=== PATIENT | male | born 1955 | race Caucasian/White ===

== ENCOUNTER 2016-08-11 11:21 | Inpatient (IN) | payer OTHER ==
--- NOTE | ~2016-08-11 | HP ---
History And Physical [address] [place]. [address] NAME: KONSTANTIN CELESTIN : 51 STATUS : ADM IN PAT#: [id number] AGE: 61 ADM/REG DATE : 08/11/16 MR#: [id number] REPORT SERV DATE: 08/11/16 DICTATED BY: LYDIA BARRERA DATE: 08/11/16 REPORT STATUS : Draft TRANSCRIBED BY: MODL DATE: 08/11/16 DATE OF ADMISSION: 08/11/2016 CHIEF COMPLAINT: Chest pain started around 4 to 5 o'clock afternoon and stayed all night, and also he has significant right foot pain that has been going on 3 to 4 months, and was supposed to see Dr. Carroll. He decided to come to the hospital due to the chest pain. HISTORY OF PRESENT ILLNESS: This is a 61-year-old male patient, who had a recent CABG in 03/2014 and 2015 in [facility] with Dr. Barrios. Started having chest pain yesterday at the midsternal area. He is concerned about his chest pain, that is why he decided to come to the hospital today. Meanwhile, he was recovering from the CABG at home pretty well. He was able to walk around without any walking aids. However, he started to suffer from right foot pain. [facility] and [facility] rider and then, ended up getting a referral to Dr. Carroll today for the first evaluation. However, he was not able to go there with this chest pain and decided to come to the hospital. The chest pain is midsternal area, is tender to touch. He did not have any nausea. He still had a pain overnight. His right foot was hurting all the time even at rest and especially at nighttime, it wakes him up from the sleep. He has not taken any medication, but his primary care increased his gabapentin to 400 mg three times a day, but he has not started at 400 mg three times a day, but he used to take it 300 mg three times a day without significant relief. He was told it was a problem for the circulation that is why he ended to see Dr. Carroll. Denies any fever or known weight loss. No nausea or vomiting. No constipation. No diarrhea, but he has a significant hearing loss since the CABG. REVIEW OF SYSTEMS: He did not have any seizures. He did not have any coughing or short of breath, and no abdominal habit change. Fourteen systems were reviewed and are negative. PAST MEDICAL HISTORY: 1. CABG, back in 03/2006. 2. 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 3. Seizure, postoperatively. 4. Peripheral vascular disease. 5. Hypertension. 6. Hyperlipidemia. 7. Diet-controlled diabetes. PAST SURGICAL HISTORY: 1. Had a left hip total replacement. History And Physical [address] [address] NAME: KONSTANTIN CELESTIN : 51 STATUS : ADM IN [facility]#: [id number] AGE: 61 ADM/REG DATE : 08/11/16 MR#: [id number] REPORT SERV DATE: 08/11/16 DICTATED BY: LYDIA BARRERA DATE: 08/11/16 REPORT STATUS : Draft TRANSCRIBED BY: KIT DATE: 08/11/16 2. Coronary artery surgery x2. 3. Esophageal stricture, stretch done. SOCIAL HISTORY: 1. Quit smoking after the CABG, but he used to smoke one and half a pack a day for whole life, which is 50 years. 2. Denies any alcohol. Used to work at [employer] He lives with his . He does not require any oxygen or walking aids. MEDICATIONS: At home: Norvasc 10 mg once a day, aspirin 81 mg once a day, Lipitor 40 mg once at nighttime, docusate twice a day, Neurontin 300 mg three times a day, Keppra 500 mg twice a day, Claritin 10 mg once daily as needed, Lopressor 50 mg twice a day, Remeron 200 mg once at nighttime. ALLERGIES: NO KNOWN DRUG ALLERGIES. PHYSICAL EXAMINATION: VITAL SIGNS: Blood pressure 115/72, pulse is 75, temperature is 98.1, saturation is 98% on room air. GENERAL APPEARANCE: He is alert, awake, older looking than his age, but he is also deaf. HEENT: Pupils are equal, round, and reactive to light. NECK: There is no jugular venous distention. No nodes palpable. CHEST: Clear to auscultation bilaterally. Has normal respiratory effort. CARDIOVASCULAR: No murmur, rub, or gallop, and regular rhythm and rate. ABDOMEN: Bowel sounds are present. Soft. There is no organomegaly appreciated. EXTREMITIES: The patient's right foot is warm to touch and it is very tender to touch, especially the 1st meta pharyngeal area. Circulation is very faint on both feet, but both feet are warm and the right side is warmer than the left side. LABORATORY DATA: Showed a sodium 144, potassium 4.0, BUN 13, creatinine 0.94. WBC 10.6, hemoglobin 13.5 and hematocrit 39.4, platelets 258. Troponin of 1.61. Chest x-ray showed no acute pathology. Electrocardiogram showed normal sinus rhythm without significant ST changes and also second electrocardiogram was obtained, when he was having chest pain and it did not show any changes. ASSESSMENT/PLAN: 1. Chest pain. It might be more musculoskeletal, because it was tender to touch in all through the incision site. However, he has elevated troponin. Currently, the patient was seen by Dr. Joseph prior to me and was put on a heparin drip for cardiovascular protocol. We are going to obtain the echocardiogram. 2. Right foot pain. More likely combination from the peripheral vascular disease and also inflammatory process is more appreciated. Need to check any possibility of gout. We History And Physical [address] [address] NAME: KONSTANTIN CELESTIN : 51 STATUS : ADM IN [facility]#: [id number] AGE: 61 ADM/REG DATE : 08/11/16 MR#: [id number] REPORT SERV DATE: 08/11/16 DICTATED BY: LYDIA BARRERA DATE: 08/11/16 REPORT STATUS : Draft TRANSCRIBED BY: MODL DATE: 08/11/16 are going to check the uric acid level and also obtain an x-ray for the foot and a Doppler scan for the artery. 3. History of a recent CABG. 4. Due to this sternal pain and tenderness with a recent CABG, we are going to obtain a CT of his chest to see any evidence of anything on the sternum area. 5. History of cerebrovascular accident. 6. History of seizure disorder. 7. Severe hearing loss. 8. History was obtained through writing down on the pad with the patient's family's help due to his hearing loss. I explained to them about the current plan and they all voiced understanding. EKL/MODL Lydia Barrera M.D. / [id number] CC: Lydia Barrera M.D.
--- NOTE | ~2016-08-11 | DS ---
Discharge Summary [facility] [address] [facility] [place]. [address] NAME: KONSTANTIN CELESTIN : 51 STATUS : DIS IN PAT#: [id number] AGE: 61 ADM/REG DATE : 08/11/16 MR#: [id number] REPORT SERV DATE: 08/16/16 DICTATED BY: VELIA BARRERA DATE: 08/15/16 REPORT STATUS : Draft TRANSCRIBED BY: MODL DATE: 08/15/16 ADMISSION DATE: 08/11/2016 DISCHARGE DATE: 08/15/2016 DISCHARGE DIAGNOSES: 1. Bpz-NS-mhnretums myocardial infarction, status post stent on [place] left anterior descending due to the occluded graft, and repeated cardiac cath after troponin went up, after the cardiac cath did show patent stent. 2. Right peripheral vascular disease. 3. Right foot pain from the peripheral vascular disease plus clinically was suspect to have inflammatory process, although his uric acid level was low, treated with a dose of anti-inflammatory steroid and NSAID topical, improved. The patient will be followed by Dr. Carroll. 4. History of cerebrovascular accident, stable. 5. Deafness. 6. History of tobacco abuse and clinical chronic obstructive pulmonary disease. HISTORY OF PRESENT ILLNESS: This is a 61-year-old male patient, who had a recent CABG at [facility] in March 2016, brought to the emergency room when he complained about chest pain at home. Please see dictated H and P. HOSPITAL COURSE: He was admitted to the hospital with chest pain. At that time, his troponin was elevated at 1.92, and he had a cardiac catheterization. The cardiac catheterization revealed occluded graft, and so nursing informatics clinical analyst felt stent in [place] LAD is beneficial, so they did a drug-eluting stent in LAD. He was put on dual anti-platelet therapy for in longer time. Indefinitely. He stayed a short stay and then the next morning he developed another chest pain and troponin went up to 5, therefore he was taken to the carpenter labor supervisor, again had another angiography. It did not show any changes, it showed patent LAD stent. After that, he was transferred to the telemetry bed. Meanwhile, he was evaluated with Doppler for his claudication and it showed moderate disease on the right side. The patient already had an appointment with Dr. Carroll and Dr. Carroll said, we will follow up him as an outpatient and after cardiac issues stabilized. Meanwhile, he was treated with the NSAID topical and intermittent opioids. However, his foot was very hot when he came into the hospital to suspect inflammatory process. His x-ray did not show any significant changes or any concern for osteomyelitis. Therefore, he was treated with a dose of IV steroid and topical steroid. Actually, the topical steroid helped him a lot than opioid medication. We are going to continue to use the topical. His uric acid was found to be 6.5. He was not treated for hyperuricemia yet. We will continue the topical NSAID. The patient will be followed by Dr. Carroll as an outpatient for peripheral vascular disease. His medications have been adjusted for his heart or cardiac disease. His metoprolol was changed to Coreg. He was added lisinopril and Imdur was added. Overall, he tolerated all this treatment and he is ambulating with minimal assistance, and the patient will be Discharge Summary [address] [address] NAME: KONSTANTIN CELESTIN : 51 STATUS : DIS IN PAT#: [id number] AGE: 61 ADM/REG DATE : 08/11/16 MR#: [id number] REPORT SERV DATE: 08/16/16 DICTATED BY: VELIA BARRERA DATE: 08/15/16 REPORT STATUS : Draft TRANSCRIBED BY: KIT DATE: 08/15/16 discharged. Discharge plan was discussed with the and the patient, since the patient is deaf and also is communicating with him writing down. DISCHARGE MEDICATIONS: 1. Aspirin 81 mg once a day. 2. Lipitor 40 mg once at nighttime. 3. Lopressor was discontinued. 4. Coreg 3.125 mg twice a day. 5. Neurontin 300 mg three times a day. 6. Keppra 500 mg twice a day. 7. Remeron 30 mg once at nighttime. 8. Lisinopril 2.5 mg once a day. 9. Imdur 60 mg once a day. 10.Brilinta 90 mg twice a day. 11.Norvasc was discontinued. 12.Hydrocodone 10 pills are given for discharge. DISPOSITION: The patient is discharged to home in stable condition. TIME SPENT: More than 30 minutes for the discharge coordination. EKL/MODL Velia Barrera M.D. / [id number] CC: Velia Barrera M.D.
--- NOTE | ~2016-08-11 | CN ---
Consultation Report [facility] [address] [place]. [address] NAME: KONSTANTIN CELESTIN : 51 STATUS : ADM Dilip PAT#: [id number] AGE: 61 ADM/REG DATE : 08/11/16 MR#: [id number] REPORT SERV DATE: 08/11/16 DICTATED BY: JAQUI SANCHES DATE: 08/11/16 REPORT STATUS : Draft TRANSCRIBED BY: MODSimin DATE: 08/11/16 CARDIOLOGY CONSULT NOTE DATE OF CONSULTATION: 08/11/2016 REFERRING REASON: Chest pain. HISTORY OF PRESENT ILLNESS: This is a 61-year-old white gentleman with a complex past medical history, who has been brought by his family for intermittent chest pain to emergency room. Communication has been difficult while the patient has congenital deafness. He has a very limited ability to speak to his , who is interpreting. Initially, there were no family members around. Later on, his was able to provide information that he reportedly has been closely followed at the [facility] and [facility] with prolonged hospitalization in five different hospitals until last month in the area including [facility], [facility], [facility], and the [facility]. The patient's stated that he underwent bypass grafting care at [facility] in March after suffering myocardial infarction. He also developed subsequently stroke and seizures and had a prolonged hospitalization at [facility]. Subsequently, he was for some rehabilitation at the [facility]. All information is per his . He was recently found to have osteomyelitis in the right foot. He saw some orthopaedic doctor and has a pending appointment with Dr. Carroll of Vascular Surgery. He continues to have intermittent episodes of chest pain. He had some episode of chest pain yesterday. He has been a heavy smoker until March for the entire life. He has limited ability to walk. Electrocardiogram has not revealed any acute ST-T changes. Troponin was found to be 1.6. The patient is now comfortably lying in bed. Obvious communication difficulties. No acute distress. No outside information available. List of medication is unknown to the . We were asked to see him in consult. PAST MEDICAL HISTORY: 1. Reportedly history of myocardial infarction in 03/2016 with subsequent CABG possibly by Dr. Barrios at [facility]. 2. Peripheral artery disease. 3. Possible right foot osteomyelitis. 4. History of CVA. 5. History of seizure disorder with a strong hospitalization at [facility] until last month. 6. Congenital deafness. 7. Hypertension. 8. History of smoking dependency. SOCIAL HISTORY: The patient is followed at the [facility]. He reportedly has a congenital deafness. He has been a heavy smoker until 03/2016. Denies drinking alcohol or using street drugs. He is now reported to have ambulating without any support. Consultation Report [facility] [address] [place]. [address] NAME: KONSTANTIN CELESTIN : 51 STATUS : ADM Dilip PAT#: [id number] AGE: 61 ADM/REG DATE : 08/11/16 MR#: [id number] REPORT SERV DATE: 08/11/16 DICTATED BY: JAQUI SANCHES DATE: 08/11/16 REPORT STATUS : Draft TRANSCRIBED BY: KIT DATE: 08/11/16 FAMILY HISTORY: Unknown. HOME MEDICATIONS: Unknown. PHYSICAL EXAMINATION: GENERAL: In no acute distress. The patient is comfortably lying in bed. VITAL SIGNS: Blood pressure 126/72, heart rate 68 and regular. HEENT: Pupils reactive to light and accommodation. Moist mucosa membrane. NECK: No JVD. Normal carotid upstroke. No carotid bruits. LUNGS: Clear to auscultation bilaterally. Normal inspiratory efforts. HEART: S1. No S3 or S4. Soft systolic murmur 2/6 at the apex. ABD: Soft, nontender, nondistended. EXTREMITIES: Lower extremities show decreased pedal pulses bilaterally with some gangrenous changes in the right heel. SKIN: Warm with normal turgor. MS: No kyphosis. NEURO/PSY: Alert and oriented. Nonfocal. DATA: CBC remarkable for hemoglobin 13.5, leukocytosis 11,000 with left shift. Electrolytes within normal limits. Troponin 1.6. Chest x-ray: No acute pathology. Electrocardiogram: Normal sinus rhythm, 70 beats per minute. Poor R-wave progression in the anterior leads, otherwise no acute ST-T changes. Possible left atrial enlargement. No previous electrocardiogram available. No findings in the chart. No hospitalization to [facility] previously. ASSESSMENT AND PLAN: 1. Intermittent chest pain of unclear etiology. 2. Elevated troponin, possible demand ischemia. 3. Possible right foot osteomyelitis. 4. Peripheral artery disease. 5. Reported history of CABG in 03/2016. I discussed with his ER provider that information will need to be obtained from the [facility] as well as the [facility]. He will need to be on monitor bed. He is to continue aspirin and heparin, which were started already in the emergency room. We will start him on carvedilol until the information about his home medication will be obtained. He may have just demand ischemia, not acute coronary syndrome, but obviously we will need to reassess if another coronary arteriogram will be necessary. The patient is currently pain- free and comfortably lying in the bed. We will follow the patient with the hospitalist. Consultation Report [facility] [id number] [place]. [address] NAME: KONSTANTIN CELESTIN : 51 STATUS : ADM Dilip PAT#: [id number] AGE: 61 ADM/REG DATE : 08/11/16 MR#: [id number] REPORT SERV DATE: 08/11/16 DICTATED BY: JAQUI SANCHES DATE: 08/11/16 REPORT STATUS : Draft TRANSCRIBED BY: KIT DATE: 08/11/16 DAVIDA/KIT Jaqui Sanches M.D. / [id number] CC: UNKNOWN
[2016-08-11 11:19] LABS: BASOPHILS 0.5 %; BASOPHILS ABSOLUTE 0.05 10/3/uL (0.0-0.16); EOSINOPHILS 2.7 %; EOSINOPHILS ABSOLUTE 0.29 10/3/uL (0.0-0.53); HEMATOCRIT 39.4 % (40.0-51.0); HEMOGLOBIN 13.5 g/dL (13.6-17.8); IMMATURE GRANULOCYTES 0.3 %; IMMATURE GRANULOCYTES ABSOLUTE 0.03 10/3/uL (0.0-0.11); LYMPHOCYTES 33.7 %; LYMPHOCYTES ABSOLUTE 3.56 10/3/uL (0.67-4.30); MEAN CORPUS HGB CONC 34.3 g/dL (32.0-36.0); MEAN CORPUSCULAR HEMOGLOB 31.3 pg (26.0-34.0); MEAN CORPUSCULAR VOLUME 91.2 fL (80-100); MEAN PLATELET VOLUME 9.9 fL (9.2-13.0); MONOCYTES 10.1 %; MONOCYTES ABSOLUTE 1.07 10/3/uL (0.21-1.20); NEUTROPHILS 52.7 %; NEUTROPHILS ABSOLUTE 5.56 10/3/uL (2.02-8.40); PLATELET COUNT 258 10/3/uL (150-400); RBC DISTRIBUTION WIDTH 14.6 % (12.0-16.0); RED CELL COUNT 4.32 10/6/uL (4.7-6.1); WHITE BLOOD CELLS 10.6 10/3/uL (4.5-10.5)
[2016-08-11 11:22] LABS: MANUAL DIFF NO %
[2016-08-11 11:29] LABS: PARTIAL THROMBO TIME 30.5 SEC (22.5-37.2)
[2016-08-11 11:34] LABS: BUN (BLOOD UREA NITROGEN) 13 MG/DL (6-23); CALCIUM, SERUM 9.3 MG/DL (8.5-10.4); CHLORIDE, SERUM 108 MMOL/L (96-112); CO2 (CARBON DIOXIDE) 25 MMOL/L (24-34); CREATININE 0.94 MG/DL (0.70-1.30); GFR AFRICAN AMERICAN 100 ML/MIN (>=60); GFR NON AFRICAN AMERICAN 86 ML/MIN (>=60); GLUCOSE, SERUM 81 MG/DL (60-99); SODIUM, SERUM 144 MMOL/L (135-148)
[2016-08-11 11:36] LABS: CHEST PAIN PROFILE TAT 0 Hrs 21 Mins; TROPONIN I 1.61 NG/ML (<0.05)
[2016-08-11] MEDS ORDERED: NORV10 PO (13:23)
[2016-08-11] MEDS ORDERED: HALF81 PO (13:24)
[2016-08-11] MEDS ORDERED: NEUR300 PO (13:24)
[2016-08-11] MEDS ORDERED: D.O.S.100 MG PO (13:24)
[2016-08-11] MEDS ORDERED: KEPPRA500 PO (13:25)
[2016-08-11] MEDS ORDERED: LOP50 PO (13:31)
[2016-08-11] MEDS ORDERED: LIPITOR40 PO (13:31)
[2016-08-11] MEDS ORDERED: REMERON30 MG PO (13:32)
[2016-08-11] MEDS ORDERED: CLARIT10 PO (13:33)
[2016-08-12 05:42] LABS: BASOPHILS 0.6 %; BASOPHILS ABSOLUTE 0.05 10/3/uL (0.0-0.16); EOSINOPHILS ABSOLUTE 0.49 10/3/uL (0.0-0.53); HEMATOCRIT 37.1 % (40.0-51.0); HEMOGLOBIN 12.4 g/dL (13.6-17.8); IMMATURE GRANULOCYTES 0.2 %; IMMATURE GRANULOCYTES ABSOLUTE 0.02 10/3/uL (0.0-0.11); LYMPHOCYTES 41.8 %; LYMPHOCYTES ABSOLUTE 3.43 10/3/uL (0.67-4.30); MANUAL DIFF NO %; MEAN CORPUS HGB CONC 33.4 g/dL (32.0-36.0); MEAN CORPUSCULAR HEMOGLOB 30.8 pg (26.0-34.0); MEAN CORPUSCULAR VOLUME 92.1 fL (80-100); MEAN PLATELET VOLUME 10.4 fL (9.2-13.0); MONOCYTES 12.1 %; MONOCYTES ABSOLUTE 0.99 10/3/uL (0.21-1.20); NEUTROPHILS 39.3 %; NEUTROPHILS ABSOLUTE 3.23 10/3/uL (2.02-8.40); PARTIAL THROMBO TIME 76.4 SEC (22.5-37.2); PLATELET COUNT 258 10/3/uL (150-400); RBC DISTRIBUTION WIDTH 14.5 % (12.0-16.0); RED CELL COUNT 4.03 10/6/uL (4.7-6.1); WHITE BLOOD CELLS 8.2 10/3/uL (4.5-10.5)
[2016-08-12 05:43] LABS: A/G RATIO 0.9 (0.7-1.9); ALBUMIN 3.1 G/DL (3.5-5.0); ALKALINE PHOSPHATASE 121 U/L (45-117); BUN (BLOOD UREA NITROGEN) 14 MG/DL (6-23); CALCIUM, SERUM 8.9 MG/DL (8.5-10.4); CHLORIDE, SERUM 108 MMOL/L (96-112); CO2 (CARBON DIOXIDE) 26 MMOL/L (24-34); CREATININE 0.97 MG/DL (0.70-1.30); GFR AFRICAN AMERICAN 96 ML/MIN (>=60); GFR NON AFRICAN AMERICAN 83 ML/MIN (>=60); GLOBULIN 3.3 G/DL (2.5-4.1); GLUCOSE, SERUM 94 MG/DL (60-99); POTASSIUM, SERUM 3.8 MMOL/L (3.5-5.3); SGOT(AST) 28 U/L (5-40); SGPT(ALT) 22 U/L (5-65); SODIUM, SERUM 145 MMOL/L (135-148); TOTAL BILIRUBIN 0.3 MG/DL (0-1.2); TOTAL PROTEIN 6.4 G/DL (6.0-8.5)
[2016-08-12 07:44] LABS: SED RATE 12 MM/HR (0-15)
[2016-08-12 11:49] LABS: CK-MB 23.8 NG/ML; CKMB INDEX (NOT ORD) 11.4
[2016-08-12 16:58] LABS: BASOPHILS 0.5 %; BASOPHILS ABSOLUTE 0.05 10/3/uL (0.0-0.16); EOSINOPHILS 3.5 %; EOSINOPHILS ABSOLUTE 0.34 10/3/uL (0.0-0.53); HEMATOCRIT 35.2 % (40.0-51.0); HEMOGLOBIN 12.1 g/dL (13.6-17.8); IMMATURE GRANULOCYTES 0.4 %; IMMATURE GRANULOCYTES ABSOLUTE 0.04 10/3/uL (0.0-0.11); LYMPHOCYTES 28.6 %; LYMPHOCYTES ABSOLUTE 2.81 10/3/uL (0.67-4.30); MEAN CORPUS HGB CONC 34.4 g/dL (32.0-36.0); MEAN CORPUSCULAR HEMOGLOB 30.9 pg (26.0-34.0); MONOCYTES 7.3 %; MONOCYTES ABSOLUTE 0.72 10/3/uL (0.21-1.20); NEUTROPHILS 59.7 %; NEUTROPHILS ABSOLUTE 5.88 10/3/uL (2.02-8.40); PLATELET COUNT 242 10/3/uL (150-400); RBC DISTRIBUTION WIDTH 14.6 % (12.0-16.0); RED CELL COUNT 3.91 10/6/uL (4.7-6.1); WHITE BLOOD CELLS 9.8 10/3/uL (4.5-10.5)
[2016-08-12 17:01] LABS: MANUAL DIFF NO %
[2016-08-12 21:20] LABS: BASOPHILS 0.4 %; BASOPHILS ABSOLUTE 0.04 10/3/uL (0.0-0.16); EOSINOPHILS 3.2 %; EOSINOPHILS ABSOLUTE 0.33 10/3/uL (0.0-0.53); HEMATOCRIT 34.6 % (40.0-51.0); HEMOGLOBIN 12.1 g/dL (13.6-17.8); IMMATURE GRANULOCYTES 0.4 %; IMMATURE GRANULOCYTES ABSOLUTE 0.04 10/3/uL (0.0-0.11); LYMPHOCYTES ABSOLUTE 2.65 10/3/uL (0.67-4.30); MANUAL DIFF NO %; MEAN CORPUSCULAR HEMOGLOB 31.3 pg (26.0-34.0); MEAN CORPUSCULAR VOLUME 89.4 fL (80-100); MEAN PLATELET VOLUME 10.1 fL (9.2-13.0); MONOCYTES 9.4 %; MONOCYTES ABSOLUTE 0.96 10/3/uL (0.21-1.20); NEUTROPHILS 60.6 %; NEUTROPHILS ABSOLUTE 6.19 10/3/uL (2.02-8.40); PLATELET COUNT 240 10/3/uL (150-400); RBC DISTRIBUTION WIDTH 14.6 % (12.0-16.0); RED CELL COUNT 3.87 10/6/uL (4.7-6.1); WHITE BLOOD CELLS 10.2 10/3/uL (4.5-10.5)
[2016-08-13 01:42] LABS: BASOPHILS 0.4 %; BASOPHILS ABSOLUTE 0.04 10/3/uL (0.0-0.16); EOSINOPHILS 3.6 %; HEMATOCRIT 35.7 % (40.0-51.0); HEMOGLOBIN 12.2 g/dL (13.6-17.8); IMMATURE GRANULOCYTES 0.3 %; IMMATURE GRANULOCYTES ABSOLUTE 0.03 10/3/uL (0.0-0.11); LYMPHOCYTES 27.5 %; LYMPHOCYTES ABSOLUTE 3.06 10/3/uL (0.67-4.30); MANUAL DIFF NO %; MEAN CORPUS HGB CONC 34.2 g/dL (32.0-36.0); MEAN CORPUSCULAR VOLUME 90.6 fL (80-100); MONOCYTES 9.8 %; MONOCYTES ABSOLUTE 1.09 10/3/uL (0.21-1.20); NEUTROPHILS 58.4 %; NEUTROPHILS ABSOLUTE 6.49 10/3/uL (2.02-8.40); PLATELET COUNT 253 10/3/uL (150-400); RBC DISTRIBUTION WIDTH 14.2 % (12.0-16.0); RED CELL COUNT 3.94 10/6/uL (4.7-6.1); WHITE BLOOD CELLS 11.1 10/3/uL (4.5-10.5)
[2016-08-13 01:58] LABS: BUN (BLOOD UREA NITROGEN) 12 MG/DL (6-23); CALCIUM, SERUM 8.7 MG/DL (8.5-10.4); CHLORIDE, SERUM 107 MMOL/L (96-112); CO2 (CARBON DIOXIDE) 26 MMOL/L (24-34); CREATININE 1.14 MG/DL (0.70-1.30); GFR AFRICAN AMERICAN 79 ML/MIN (>=60); GFR NON AFRICAN AMERICAN 68 ML/MIN (>=60); GLUCOSE, SERUM 108 MG/DL (60-99); POTASSIUM, SERUM 3.8 MMOL/L (3.5-5.3); SODIUM, SERUM 144 MMOL/L (135-148)
[2016-08-13 02:00] LABS: CKMB INDEX (NOT ORD) 7.6; CPK 172 U/L (0-200)
[2016-08-13 02:02] LABS: TROPONIN I 4.07 NG/ML (<0.05)
[2016-08-14 06:21] LABS: BASOPHILS 0.3 %; BASOPHILS ABSOLUTE 0.03 10/3/uL (0.0-0.16); EOSINOPHILS 3.7 %; EOSINOPHILS ABSOLUTE 0.34 10/3/uL (0.0-0.53); HEMATOCRIT 32.7 % (40.0-51.0); HEMOGLOBIN 11.3 g/dL (13.6-17.8); IMMATURE GRANULOCYTES 0.2 %; IMMATURE GRANULOCYTES ABSOLUTE 0.02 10/3/uL (0.0-0.11); LYMPHOCYTES 31.9 %; LYMPHOCYTES ABSOLUTE 2.97 10/3/uL (0.67-4.30); MANUAL DIFF NO %; MEAN CORPUS HGB CONC 34.6 g/dL (32.0-36.0); MEAN CORPUSCULAR HEMOGLOB 31.5 pg (26.0-34.0); MEAN CORPUSCULAR VOLUME 91.1 fL (80-100); MEAN PLATELET VOLUME 10.2 fL (9.2-13.0); MONOCYTES 10.1 %; MONOCYTES ABSOLUTE 0.94 10/3/uL (0.21-1.20); NEUTROPHILS 53.8 %; PLATELET COUNT 236 10/3/uL (150-400); RBC DISTRIBUTION WIDTH 14.6 % (12.0-16.0); RED CELL COUNT 3.59 10/6/uL (4.7-6.1); WHITE BLOOD CELLS 9.3 10/3/uL (4.5-10.5)
[2016-08-14 06:31] LABS: BUN (BLOOD UREA NITROGEN) 12 MG/DL (6-23); CALCIUM, SERUM 8.6 MG/DL (8.5-10.4); CHLORIDE, SERUM 111 MMOL/L (96-112); CO2 (CARBON DIOXIDE) 27 MMOL/L (24-34); CREATININE 1.02 MG/DL (0.70-1.30); GFR AFRICAN AMERICAN 90 ML/MIN (>=60); GFR NON AFRICAN AMERICAN 78 ML/MIN (>=60); GLUCOSE, SERUM 105 MG/DL (60-99); POTASSIUM, SERUM 3.7 MMOL/L (3.5-5.3); SODIUM, SERUM 145 MMOL/L (135-148)
[2016-08-15 05:56] LABS: BASOPHILS 0.2 %; BASOPHILS ABSOLUTE 0.02 10/3/uL (0.0-0.16); EOSINOPHILS 0.1 %; EOSINOPHILS ABSOLUTE 0.01 10/3/uL (0.0-0.53); HEMATOCRIT 30.3 % (40.0-51.0); HEMOGLOBIN 10.5 g/dL (13.6-17.8); IMMATURE GRANULOCYTES 0.5 %; IMMATURE GRANULOCYTES ABSOLUTE 0.07 10/3/uL (0.0-0.11); LYMPHOCYTES 14.9 %; LYMPHOCYTES ABSOLUTE 1.98 10/3/uL (0.67-4.30); MANUAL DIFF NO %; MEAN CORPUS HGB CONC 34.7 g/dL (32.0-36.0); MEAN CORPUSCULAR HEMOGLOB 31.1 pg (26.0-34.0); MEAN CORPUSCULAR VOLUME 89.6 fL (80-100); MEAN PLATELET VOLUME 9.8 fL (9.2-13.0); MONOCYTES 8.5 %; MONOCYTES ABSOLUTE 1.13 10/3/uL (0.21-1.20); NEUTROPHILS 75.8 %; NEUTROPHILS ABSOLUTE 10.06 10/3/uL (2.02-8.40); PLATELET COUNT 258 10/3/uL (150-400); RBC DISTRIBUTION WIDTH 14.4 % (12.0-16.0); RED CELL COUNT 3.38 10/6/uL (4.7-6.1); WHITE BLOOD CELLS 13.3 10/3/uL (4.5-10.5)
[2016-08-15 06:10] LABS: CALCIUM, SERUM 8.9 MG/DL (8.5-10.4); CHLORIDE, SERUM 110 MMOL/L (96-112); CO2 (CARBON DIOXIDE) 23 MMOL/L (24-34); CREATININE 0.92 MG/DL (0.70-1.30); GFR AFRICAN AMERICAN 102 ML/MIN (>=60); GFR NON AFRICAN AMERICAN 88 ML/MIN (>=60); POTASSIUM, SERUM 3.9 MMOL/L (3.5-5.3); SODIUM, SERUM 143 MMOL/L (135-148)
[2016-08-15 06:12] LABS: BUN (BLOOD UREA NITROGEN) 16 MG/DL (6-23); GLUCOSE, SERUM 132 MG/DL (60-99)
[2016-08-15] MEDS ORDERED: VOLTAREN1 % TOP (12:16)
[2016-08-15] MEDS ORDERED: NORCO1 TA1 PO (12:17)
[2016-08-15] MEDS ORDERED: BRILINTA90 MG PO (12:17)
[2016-08-15] MEDS ORDERED: COREG3 PO (12:18)
[2016-08-15] MEDS ORDERED: IMDUR60 PO (12:18)
[2016-08-15] MEDS ORDERED: PRIN2.5 PO (12:18)
[2016-08-15] MEDS ORDERED: MIRALAX POWDER1 PKT PO (12:20)
== END 2016-08-15 14:36 | disposition home or self-care (01) | DRG 247 ==
LOC: ER 11:21 → CDU1 14:04 → 7NO 14:54 → SSU1 08-12 10:54 → 5NO 08-13 14:22
PROVIDERS: Internal Medicine; Internal Medicine Cardiovascular Disease; Physician Assistant
PROC: 4A023N7 Measurement of Cardiac Sampling and Pressure, Left Heart, Percutaneous Approach (ICD-10-PCS; principal; 2016-08-12)
PROC: 027034Z Dilation of Coronary Artery, One Artery with Drug-eluting Intraluminal Device, Percutaneous Approach (ICD-10-PCS; 2016-08-12)
PROC: B2111ZZ Fluoroscopy of Multiple Coronary Arteries using Low Osmolar Contrast (ICD-10-PCS; 2016-08-12)
PROC: B2151ZZ Fluoroscopy of Left Heart using Low Osmolar Contrast (ICD-10-PCS; 2016-08-12)
PROC: 3E073PZ Introduction of Platelet Inhibitor into Coronary Artery, Percutaneous Approach (ICD-10-PCS; 2016-08-12)
PROC: B2131ZZ Fluoroscopy of Multiple Coronary Artery Bypass Grafts using Low Osmolar Contrast (ICD-10-PCS; 2016-08-12)
PROC: B2111ZZ Fluoroscopy of Multiple Coronary Arteries using Low Osmolar Contrast (ICD-10-PCS; 2016-08-13)
DX: I21.4 Non-ST elevation (NSTEMI) myocardial infarction (principal); H90.3 Sensorineural hearing loss, bilateral; I25.810 Atherosclerosis of coronary artery bypass graft(s) without angina pectoris; I73.9 Peripheral vascular disease, unspecified; Z87.891 Personal history of nicotine dependence; Z86.73 Personal history of transient ischemic attack (TIA), and cerebral infarction without residual deficits; J44.9 Chronic obstructive pulmonary disease, unspecified
CPT/HCPCS: 71010; 71260; 73630-RT; 80048; 80053; 82550; 82553; 83735; 84484; 84550; 85025; 85347; 85610; 85652; 85730; 87040; 93005; 93306; 93454; 93459; 93925; 94640; 96365; 96375; 99152; 99153; 99285; A9270-GY; C1725; C1769; C1874; C1887; C1894; C9600; J1327; J2250; J2270; J2405; J2930; J3010; Q9967